=== PATIENT | female | born 1975 | race Caucasian/White ===

== ENCOUNTER 2017-09-19 15:40 | Emergency (ER) | payer OTHER ==
[2017-09-19 16:02] VITALS: BP 130/53; PULSE 85; RESP 16; TEMP 98.1; O2SAT 97
[2017-09-19] MEDS ORDERED: BACL10TA PO (16:18)
[2017-09-19] MEDS ORDERED: DICL1CAP3 PO (16:18)
[2017-09-19] MEDS ORDERED: ROBA750T PO (16:25)
--- NOTE | 2017-09-19 16:25 | PD ---
HPI Chief Complaint: Pain: Acute or Chronic Time Seen by Provider: 16:09 Travel History International Travel<30 days: No Contact w/Intl Traveler<30days: No Traveled to known affect area: No History of Present Illness HPI 41-year-old female here with left leg pain. She was diagnosed with a hamstring strain several days ago for hospital. She reports she had a minor overstretching injury which caused the pain. She is here requesting pain medication as muscle relaxers are not working. She is allergic to Toradol and tramadol. She reports Tylenol does not help. Denies altered sensation or weakness of the extremity. Symptom severity is mild to moderate. Aggravated by palpation of the area and walking. Relieved with rest. PFSH Past Medical History Medical History: Denies Significant Hx Tetanus Vaccination: Unknown Influenza Vaccination: No ?: Not LMP: 2 WEEKS Tubal Ligation: Yes Past Surgical History Appendectomy: Yes Social History Alcohol Use: No Tobacco Use: Yes (1/2 PPD) Substance Use: No Allergies-Medications (Allergen,Severity, Reaction): Coded Allergies: ketorolac (Verified Allergy, Intermediate, 09/19/17) RASH tramadol (Verified Allergy, Intermediate, 09/19/17) RASH Reported Meds & Prescriptions Reported Meds & Active Scripts Active Robaxin (Methocarbamol) 750 Mg Tab 750 Mg PO QID Reported Zorvolex (Diclofenac) 18 Mg Cap Unknown Dose PO TID Baclofen 10 Mg Tab Unknown Dose PO Q8HR Review of Systems Except as stated in HPI: all other systems reviewed are Neg General / Constitutional: No: Fever Eyes: No: Visual changes HENT: No: Headaches Cardiovascular: No: Chest Pain or Discomfort Respiratory: No: Shortness of Breath Gastrointestinal: No: Abdominal Pain Genitourinary: No: Dysuria Skin: No Rash Physical Exam Narrative GENERAL: Alert and well-appearing 41-year-old female. Ambulates with a steady gait SKIN: Warm and dry. HEAD: Normocephalic. EYES: No injection or drainage. NECK: Supple CARDIOVASCULAR: Regular rate and rhythm RESPIRATORY: Breath sounds equal bilaterally. No accessory muscle use. GASTROINTESTINAL: Abdomen soft, non-tender, nondistended. MUSCULOSKELETAL: No cyanosis, or edema. LLE: TTP left hamstring. No bony tenderness. Hip flexion elicits pain in the hamstring. Palpable distal pulses. Sensation intact. Cap refill intact. BACK: Nontender without obvious deformity. No CVA tenderness. Data Data Last Documented VS Vital Signs Date Time Temp Pulse Resp B/P (MAP) Pulse Ox O2 Delivery O2 Flow Rate FiO2 09/19/17 16:02 98.1 85 16 130/53 (78) 97 Orders Orders Orphenadrine Inj (Norflex Inj) (09/19/17 16:30) Ondansetron Odt (Zofran Odt) (09/19/17 17:15) [facility] Medical Decision Making Medical Screen Exam Complete: Yes Emergency Medical Condition: Yes Differential Diagnosis Hamstring strain, hip strain, med seeking behavior Narrative Course 41-year-old female here with left leg pain. She was diagnosed with a hamstring strain several days ago for hospital. She is here requesting pain medication as muscle relaxers are not working. She is allergic to Toradol and tramadol. She reports Tylenol does not help. Her physical exam is insistent with hamstring strain. She ambulates with a steady gait. She has palpable distal pulses. No bony tenderness. No swelling of the leg. She was given a shot of Norflex reported symptom improvement. Diagnosis Primary Impression: Hamstring strain Qualified Codes: S76.312A - Strain of muscle, fascia and tendon of the posterior muscle group at thigh level, left thigh, initial encounter Referrals: Primary Care Physician Additional Instructions: Tylenol or ibuprofen as needed for pain. Robaxin as needed for muscle spasm. Apply heat as directed. Follow-up with her primary doctor. Scripts Methocarbamol (Robaxin) 750 Mg Tab 750 MG PO QID for Muscle Spasm, #10 TAB 0 Refills Prov: Mamie Chen 09/19/17 Disposition: 01 DISCHARGE HOME Condition: Stable Mamie Chen Sep 19, 2017 16:25
[2017-09-19] MEDS ORDERED: ORPHENADRINE INJ 60 MG/2 ML AMP IM ONE (16:30)
[2017-09-19] MEDS ORDERED: ONDANSETRON ODT 4 MG TAB PO ONE (17:15)
== END 2017-09-19 17:24 | disposition home or self-care (01) ==
LOC: PHEFT 15:40
DX: S76.312A Strain of muscle, fascia and tendon of the posterior muscle group at thigh level, left thigh, initial encounter (principal); Z72.0 Tobacco use; X50.9XXA Other and unspecified overexertion or strenuous movements or postures, initial encounter
CPT/HCPCS: 96372; 99283; J2360